=== PATIENT | male | born 1985 | race Caucasian/White ===

== ENCOUNTER 2016-07-26 09:51 | Day surgery (SDC) | payer MEDICAID, OTHER ==
[~2016-07-26] VITALS: Ht 177.8 cm; Wt 79.0 kg
[2016-07-26] VITALS (10 sets, daily range): BP systolic 104–128; BP diastolic 60–81; PULSE 47–55; RESP 14–21; Ht 177.8 cm; Wt 79.0 kg
[2016-07-26] MEDS ORDERED: FINA1TAB16 PO (10:19)
[2016-07-26 10:49] LABS: ADD SCAN DIFF NO
[2016-07-26 11:00] LABS: BASOPHILS % 0.8 % (0.0-2.0); EOSINOPHILS # 0.1 10^3/ul (0.0-0.5); EOSINOPHILS % 1.8 % (0.0-7.0); HEMATOCRIT 40.9 % (42.0-52.0); HEMOGLOBIN 13.8 g/dl (14.0-18.0); LYMPHOCYTES # 1.3 10^3/ul (0.8-2.9); LYMPHOCYTES % 26.2 % (15.0-51.0); MEAN CORPUSCULAR HEMOGLOBIN 29.8 pg (29.0-33.0); MEAN CORPUSCULAR HGB CONC 33.7 g/dl (32.0-37.0); MEAN CORPUSCULAR VOLUME 88.3 fl (82.0-101.0); MEAN PLATELET VOLUME 10.6 fl (7.4-10.4); MONOCYTE # 0.5 10^3/ul (0.3-0.9); MONOCYTES % 9.2 % (0.0-11.0); NEUTROPHIL # 3.1 10^3/ul (1.6-7.5); NEUTROPHILS % 61.8 % (39.0-77.0); PLATELET COUNT 224 10^3/UL (140-415); RED BLOOD COUNT 4.63 10^6/ul (4.70-6.10); RED CELL DISTRIBUTION WIDTH 13.3 % (11.5-14.5)
[2016-07-26 11:16] LABS: ALBUMIN 4.2 g/dl (3.3-4.9); ALBUMIN/GLOBULIN RATIO 1.27; BILIRUBIN,INDIRECT 0.6 mg/dl (0-1.1); BILIRUBIN,TOTAL 0.6 mg/dl (0.2-1.3); TOTAL PROTEIN 7.5 g/dl (6.1-8.1)
[2016-07-26 11:17] LABS: CALCIUM 9.3 mg/dl (8.4-10.2); CREATININE 1.09 mg/dl (0.61-1.24)
[2016-07-26] MEDS ORDERED: CEFAZOLIN 2 GM/50 ML (PMX) 50 ML IVPB ONE (11:30)
[2016-07-26] MEDS ORDERED: SOD CHLORIDE 0.9% 1,000 ML IV SCH (11:30)
[2016-07-26] MEDS ORDERED: LIDOCAINE 2% (MDV) 20 ML INJ INJ ONE (12:00)
[2016-07-26] MEDS ORDERED: BUPIVACAINE 0.5% 30 ML VIAL INJ ONE (12:00)
[2016-07-26] MEDS ORDERED: BUPIVACAINE 0.5% (SDV) 30 ML INJ ONE (12:14)
[2016-07-26] MEDS ORDERED: LIDOCAINE 2% (MDV) 20 ML INJ ONE (12:14)
[2016-07-26] MEDS ORDERED: CEFAZOLIN 1 GM INJ ONE (12:15)
[2016-07-26] MEDS ORDERED: KETOROLAC 30 MG INJ ONE (12:15)
[2016-07-26] MEDS ORDERED: OXYCODONE/ACETAMINOPHEN (5/325) TAB PO PRN ×2 (12:30)
[2016-07-26] MEDS ORDERED: HYDROmorphONE (0.2 MG/ML) 10ML SYG IV PRN ×3 (12:30)
[2016-07-26] MEDS ORDERED: ONDANSETRON 4 MG INJ IV PRN (12:30)
[2016-07-26 12:38] LABS: INR 0.89
--- NOTE | 2016-07-26 12:43 | OPR ---
Date/Time of Note Date/Time of Note DATE: 07/26/16 TIME: 12:42 Operative Report Procedure Date: July 26, 2016 Preoperative Diagnosis scalp mass Postoperative Diagnosis same Operation Performed excision of scalp mass 2 cm incision 2 cm mass localized adjacent tissue transfer with the use of skin flaps Surgeon: Marilyn SANTOS Specimens scalp mass and capsule Marilyn SANTOS July 26, 2016 12:43
[2016-07-26 12:45] LABS: PARTIAL THROMBOPLASTIN TIME 25.3 Sec (25.0-35.0)
[2016-07-26] MEDS ORDERED: ACETAMINOPHEN/CODEINE #3 TAB PO ONE (13:00)
--- NOTE | 2016-07-26 13:04 | OPR ---
DATE OF OPERATION: 07/26/2016 INDICATIONS: This is a 31-year-old male with a scalp mass. He requests surgical excision. Risks, alternatives, benefits, and personnel were discussed with the patient. The patient expressed unders tanding and consents to the operation. PREOPERATIVE DIAGNOSIS: Scalp mass. POSTOPERATIVE DIAGNOSIS: Scalp mass. OPERATION PERFORMED: 1. Excision of scalp mass with 2 cm size incision and 2 cm size mass. 2. Localized adjacent tissue transfer with the use of skin flaps with 2 square cm defect. SURGEON: Letty Mir MD SPECIMEN: Scalp mass. COMPLICATIONS: None. ANESTHESIA: General. PROCEDURE: The patient was taken to the OR and prepped and draped in the usual sterile fashion. Howell rgical timeout was performed. IV antibiotics were given. Local anesthesia was infiltrated into the site. A 15 blade used to make a transverse incision. Dissection cautery was carried down to the m ass. The mass was circumferentially excised. The mass was excised along with the capsule. There w as good hemostasis. Due to the tissue defect, localized adjacent tissue transfer with the use of sk in flaps was performed. Multilayer closure with interrupted 3-0 Vicryl and interrupted 4-0 Monocryl . Dry dressings were applied. Dictated By: [facility]TY [facility]/MILO Conf#: [id number] DID#: [id number]
== END 2016-07-26 13:45 | disposition home or self-care (01) ==
LOC: SDS 09:51
PROVIDERS: ATTEND Surgery
DX: L72.11 Pilar cyst (principal)
CPT/HCPCS: 14020; 80053; 85025; 85610; 85730; 88307; J0690; J1885